=== PATIENT | female | born 1985 | race Caucasian/White ===

== ENCOUNTER 2021-07-19 09:39 | Inpatient (IN) ==
[2021-07-19 11:11] LABS: Rapid COVID-19 Molecular Undetected (Undetected)
[2021-07-19] MEDS ORDERED: Buffered Lidocaine 1% SYRIN 1 ml INTRADERM ONE (11:15)
[2021-07-19] MEDS ORDERED: Lactated Ringers 1000 ml BAG 1,000 ML IV ONE ×2 (11:15→21:35)
[2021-07-19 11:40] LABS: Urine Benzodiazepine Screen None Detected (None Detect); Urine Opiates Screen None Detected (None Detect)
[2021-07-19] MEDS ORDERED: Lactated Ringers 1000 ml BAG 1,000 ML IV SCH ×3 (12:00→23:00)
[2021-07-19 12:37] LABS: ABS Eosinophils 0.1 10^3/ul (0-0.6); ABS Lymphocytes 2.4 10^3/ul (1.0-4.8); ABS Monocytes 0.7 10^3/ul (0-0.8); Eosinophil % 0.7 %; Hematocrit 36 % (35-47); Hemoglobin 12.2 g/dL (12.0-16.0); Lymphocyte % 19.6 %; Mean Corpuscular HGB Conc 34 g/dL (31-36); Mean Corpuscular Hemoglobin 31 pg (27-31); Mean Corpuscular Volume 90 fL (80-97); Mean Platelet Volume 8.8 fL (7.4-10.4); Platelet Count 236 10^3/uL (150-450); Red Blood Count 3.99 10^6 /uL (3.70-4.87); Red Cell Distribution Width 15 % (10-15); White Blood Count 12.2 10^3/uL (3.5-10.8)
[2021-07-19] MEDS ORDERED: OBEPIDURAL 250 ML EPIDURAL ONE (20:58)
[2021-07-19] MEDS ORDERED: Phenylephrine 40 mcg/mL 10mL (400mcg) SYRINGE IV PUSH PRN ×2 (21:35)
[2021-07-19] MEDS ORDERED: Sodium Citrate/Citric Acid LIQ 15 ML UDC PO PRN (21:35)
[2021-07-19] MEDS ORDERED: OBEPIDURAL 250 ML EPIDURAL SCH (22:00)
[2021-07-19] MEDS ORDERED: Oxytocin in LR 20 UNITS/1,000 ML BAG IVPB ONE (22:23)
[2021-07-19] MEDS ORDERED: Oxytocin in LR 20 UNITS/1,000 ML BAG IVPB SCH (22:30)
[2021-07-19] MEDS ORDERED: Dibucaine 1% OINT 28.35 GM TUBE PR PRN (22:55)
[2021-07-19] MEDS ORDERED: Witch Hazel PAD JAR TOPICAL PRN (22:55)
[2021-07-20] MEDS ORDERED: Lidocaine 1% VIAL 10 MG/ML VIAL ONE (01:11)
[2021-07-20 07:56] LABS: ABS Basophils 0.1 10^3/ul (0-0.2); ABS Eosinophils 0.1 10^3/ul (0-0.6); ABS Neutrophils 10.2 10^3/ul (1.5-7.7); Eosinophil % 0.6 %; Hematocrit 36 % (35-47); Hemoglobin 12.1 g/dL (12.0-16.0); Lymphocyte % 20.8 %; Mean Corpuscular HGB Conc 34 g/dL (31-36); Mean Corpuscular Hemoglobin 31 pg (27-31); Mean Corpuscular Volume 90 fL (80-97); Mean Platelet Volume 8.7 fL (7.4-10.4); Platelet Count 232 10^3/uL (150-450); Red Blood Count 3.97 10^6 /uL (3.70-4.87); Red Cell Distribution Width 15 % (10-15); White Blood Count 14.4 10^3/uL (3.5-10.8)
[2021-07-21 08:56] VITALS: BP 110/61
== END 2021-07-21 11:12 | disposition home or self-care (01) | DRG 560 ==
LOC: MCHOBOUT 09:39 → MCHOB 10:02
PROVIDERS: ADMIT Advanced Practice Midwife; ATTEND Advanced Practice Midwife